=== PATIENT | male | born 1945 | race Caucasian/White ===

== ENCOUNTER 2018-01-18 21:20 | Emergency (ER) | payer MEDICARE, OTHER ==
[~2018-01-18] VITALS: Ht 170.2 cm; Wt 65.8 kg
[~2018-01-18 21:20] MED LIST: METHADONE HCL10 MG PO
[2018-01-18 21:25] VITALS: BP 142/88
--- NOTE | 2018-01-18 21:49 | Emergency Room Report ---
History of Present Illness General Chief Complaint: Overdose Source: Patient, Medical Record Present Illness HPI This is a 72-year-old male who is homeless. He is also wheelchair-bound. Friends called 911 because he slipped out of his wheelchair. He had been complaining of unable to sleep for 12 days. He bought 2 pills from his friends and as he was waiting at the [employer] truck he became very sleepy and somnolent. He slid off his wheelchair. Really no trauma. Patient was very sleepy here but denies any suicidal thoughts or intentional overdose. Denies any other complaint. Denies any drug use or alcohol use. Allergies: Coded Allergies: No Known Allergies (Unverified , 03/09/14) Patient History Past Medical History: see triage record, old chart reviewed Past Surgical History: other Pertinent Family History: none Social History: Reports: smoking Immunizations: other Reviewed Nursing Documentation: PMH: Agreed; PSxH: Agreed Review of Systems Eye: Denies: eye pain, blurred vision ENT: Denies: ear pain, nose congestion, throat swelling Respiratory: Denies: cough, shortness of breath Cardiovascular: Denies: chest pain, palpitations Gastrointestinal: Denies: abdominal pain, diarrhea, nausea, vomiting Musculoskeletal: Denies: back pain, joint pain Skin: Denies: rash Neurological: Denies: headache, numbness Endocrine: Denies: increased thirst, increased urine Hematologic/Lymphatic: Denies: easy bruising All Other Systems: negative except mentioned in HPI Physical Exam Vital Signs Date Time Temp Pulse Resp B/P (MAP) Pulse Ox O2 Delivery O2 Flow Rate FiO2 01/18/18 21:21 97.7 78 18 142/88 98 Room Air 97.7 vitals normal Sp02 EP Interpretation: reviewed, normal General Appearance: well appearing, no apparent distress, other - sleepy but awakable Head: normocephalic, atraumatic Eyes: bilateral eye PERRL, bilateral eye EOMI, bilateral eye other - pupil 2 mm ENT: hearing grossly normal, normal pharynx Neck: full range of motion, supple, no meningismus Respiratory: chest non-tender, lungs clear, normal breath sounds Cardiovascular #1: regular rate, rhythm, no murmur Gastrointestinal: normal bowel sounds, non tender, no mass, no organomegaly, no bruit, non-distended Musculoskeletal: back normal, normal range of motion Neurologic: grossly normal Skin: warm/dry Medical Decision Making Diagnostic Impression: Primary Impression: Drug overdose Qualified Codes: T50.901A - Poisoning by unspecified drugs, medicaments and biological substances, accidental (unintentional), initial encounter ER Course Patient presents with overdose on symptom for sleeping medication. He's been sleeping here without any problem. No trauma. CT head negative. We'll observe until he is clinically sober. Patient slept for several hours and got up he stated that he needed to urinate. Afterward he said he was to go. CT/MRI/US Diagnostic Results CT/MRI/US Diagnostic Results : Imaging Test Ordered: CT head Impression negative per radiologist Last Vital Signs Date Time Temp Pulse Resp B/P (MAP) Pulse Ox O2 Delivery O2 Flow Rate FiO2 01/18/18 21:21 97.7 78 18 142/88 98 Room Air 97.7 Status: improved Disposition: HOME, SELF-CARE Condition: Stable Additional Instructions: Follow-up with your Dr. in 7 days. Return if worse. KRISTI GRAY M.D. Jan 18, 2018 21:49
[2018-01-18] MEDS ORDERED: Naloxone 1mg/ml 2ml IM ONE (22:00)
[2018-01-18 23:36] VITALS: BP 189/93
[2018-01-19 00:55] VITALS: BP 189/93
--- NOTE | 2018-01-19 09:00 | Diagnostic Imaging Report ---
Indication: Headache. Head trauma Technique: Contiguous 5 mm thick transaxial imaging of the head obtained in a Siemens Sensation [address] scanner. Soft tissue and bone windows generated. Automatic Exposure Control was utilized. Total Dose length Product (DLP): 1474.[address] Dose Index Volume (CTDIvol): 70.38 mGy Comparison: none Findings: There is mild prominence of the ventricles, basal cisterns, and cerebral sulci consistent with atrophy. Mild, nonspecific, white matter hypoattenuation is noted throughout the brain consistent with chronic small vessel disease. There is no midline shift, edema, acute hemorrhage, mass effect, or abnormal extra-axial fluid collections. Bones and extra osseous soft tissues are unremarkable. Mucosal thickening noted within the paranasal sinuses. Impression: No acute intracranial bleed, mass effect or edema. Mild atrophy of the brain. Nonspecific white matter hypoattenuation probably due to chronic small vessel disease. Sinusitis. Degraded study due to motion. [facility] has communicated the preliminary results to the Emergency Department. Their findings are largely concordant with this report. The CT scanner at [facility] is accredited by the [employer] and the scans are performed using dose optimization techniques as appropriate to a performed exam including Automatic Exposure control.
== END 2018-01-19 00:55 | disposition home or self-care (01) ==
LOC: EDBD 21:20 → EMR 21:56
DX: T50.901A Poisoning by unspecified drugs, medicaments and biological substances, accidental (unintentional), initial encounter (principal); Y92.9 Unspecified place or not applicable; G31.9 Degenerative disease of nervous system, unspecified; J32.9 Chronic sinusitis, unspecified
CPT/HCPCS: 70450; 96372; 99284; J2310

== ENCOUNTER 2019-02-06 02:14 | Emergency (ER) | payer MEDICARE, OTHER ==
[~2019-02-06] VITALS: Ht 167.6 cm; Wt 68.0 kg
--- NOTE | 2019-02-06 02:14 | NUR ---
ED Nurse Note: ROSALIO BUENO FROM [place] C/O BILATERAL EYE PAIN. PT STATES HE CAN'T SEE OR OPEN EYE; UNKNOWN ETIOLOGY. AO3. NAD.
--- NOTE | 2019-02-06 02:30 | NUR ---
ED Nurse Note: IRRIGATED BILATERAL EYE
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
[2019-02-06 02:43] VITALS: BP 193/83
[2019-02-06] MEDS ORDERED: NORVASC10 MG ORAL (03:53)
[2019-02-06 03:58] VITALS: BP 160/73
[2019-02-06 04:30] VITALS: BP 160/73
--- NOTE | 2019-02-06 04:30 | NUR ---
Homeless Discharge: Patient is being discharged from medical care. Awake, alert and oriented x4. After care instructions, including referral to community resources were given. Patient verbalized understanding of After care instructions; at this time patient does not request medications, equipment or placement. Patient signed patient consent in the medical record for patient destination upon discharge. id band removed. Declined to state destination after discharge. offered transportation after discharge; patient refused. provided pt with weather appropriate clothing, food and water. Patient ambulated out with all personal belongings with steady gait.
--- NOTE | 2019-02-06 04:53 | NUR ---
Note undone in ED - 02/06/19 at 0455 by LCRISOSTOM Homeless Discharge: Patient is being discharged from medical care. Awake, alert and oriented x4. After care instructions, including referral to community resources were given. Patient verbalized understanding of After care instructions; at this time patient does not request medications, equipment or placement. Patient signed patient consent in the medical record for patient destination upon discharge. id band removed. Declined to state destination after discharge. offered transportation after discharge; patient refused. provided pt with weather appropriate clothing, food and water. Patient ambulated out with all personal belongings with steady gait.
== END 2019-02-06 04:30 | disposition home or self-care (01) ==
LOC: EDBD 02:14 → EMR 02:46
DX: H10.213 Acute toxic conjunctivitis, bilateral (principal); I10 Essential (primary) hypertension; Z59.0 Homelessness
CPT/HCPCS: 80307; 99283

== ENCOUNTER 2019-05-18 10:22 | Emergency (ER) | payer SELFPAY ==
[~2019-05-18] VITALS: Ht 175.3 cm; Wt 63.5 kg
[~2019-05-18 10:22] MED LIST changes: +NORVASC10 MG ORAL
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
[2019-05-18 10:33] VITALS: BP 146/68
--- NOTE | 2019-05-18 10:40 | NUR ---
ED Nurse Note: DR EATON AT BEDSIDE FOR EVALUATION. PT REFUSES EXAM AND STATES, "I DON'T NEED HELP." PT OFFERED FOOD BUT DECLINED. PT ASKED IF HE WANTS FOOD TO TAKE WITH HIM. SANDWICH AND JUICE PROVIDED FOR PT IN BELONGINGS BAG. PT PROVIDED WITH WALKER TO ASSIST WITH AMBULATION. PT DRESSED IN WEATHER APPROPRIATE CLOTHING. PT DECLINED ANY ASSISTANCE WITH RESOURCES REGARDING SHETLERS OR HEALTH CLINICS.
[2019-05-18 10:45] VITALS: BP 142/76
--- NOTE | 2019-05-18 10:45 | NUR ---
ED Nurse Note: PT LAYING PEACEFULLY IN BED IN NAD. AOX4. DISCHARGE PAPERWORK EXPLAINED TO PT. PT VERBALIZES UNDERSTANDING AND ALL QUESTIONS ANSWERED. DISCHARGE PAPERWORK GIVEN TO PT AND ID WRISTBAND REMOVED. PT WALKED OUT OF ER WITH STEADY GAIT AND ALL BELONGINGS.
--- NOTE | 2019-05-18 10:54 | Emergency Room Report ---
History of Present Illness General Chief Complaint: Altered Level of Consciousness Source: Patient, Medical Record, EMS Present Illness HPI Disclaimer: Please note that this report is being documented using DRAGON technology. This can lead to erroneous entry secondary to incorrect interpretation by the dictating instrument. HPI: This is a 74-year-old male with unknown medical history presenting by EMS for evaluation of behavioral changes. According to EMS, the patient was evaluated by a family welfare social work professor during a wellness check performed for homeless population on the street outside a store front today. EMS said the person who called them stated that he was behaving rationally and aggressively. They stated that he has been compliant and resting comfortably during their encounters with him. He has not required restraints. He states he does not know why he was brought here and that he has no complaints at this time. He does not recall any altercation with anyone and is requesting to leave. He states he has no formal diagnosis of psychiatric illness and that he takes no medication. He does not follow with a doctor regularly. He denies any drug or alcohol abuse currently but states he had problems with alcohol abuse in the past. States he has a known heart murmur but otherwise does not have any significant medical history, takes no medications and is otherwise in his usual state of health. He denies any recent falls or traumas, fevers, chest pain, shortness of breath, cough, vomiting, diarrhea or skin rash. He states he usually ambulate with the use of a walker or cane for stability but has lost his walker and would like a new one if possible. He denies SI/HI or any mental health issues at this time PMH: Denies PSH: Denies Allergies: Denies Social Hx: Former alcohol abuse, denies current use Allergies: Coded Allergies: No Known Allergies (Unverified , 05/18/19) Nursing Documentation-PMH Past Medical History: No Stated History Review of Systems All Other Systems: negative except mentioned in HPI Physical Exam Vital Signs Date Time Temp Pulse Resp B/P (MAP) Pulse Ox O2 Delivery O2 Flow Rate FiO2 05/18/19 10:19 99.0 88 20 172/56 (94) 99 Room Air General: Awake and alert, disheveled and unkempt, pleasant HEENT: NC/AT. EOMI. PERRLA. No nystagmus. Edentulous. Moist mucous membranes Neck: Supple, trachea midline Chest Wall: No tenderness, no deformity Cardiovascular: RRR. Systolic ejection murmur best heard at the left sternal border Resp: Normal work of breathing. No cough, wheezing or crackles appreciated Abdomen: Abdomen is soft, nondistended. Nontender Skin: Well-healed scars over the abdomen appears nonsurgical. No appreciated rash or skin breakdown on exposed skin MSK: Normal tone and bulk. Moving all extremities. No obvious deformity. Neuro: Awake and alert. Oriented x3. Mentating appropriately. Moving all extremities. Strength in the upper and lower extremities is 5/5. Attention and concentration. Appropriate insight. Medical Decision Making Diagnostic Impression: Primary Impression: History of behavioral and mental health problems ER Course Is a 74-year-old male brought in by EMS for evaluation of behavioral changes. He is awake, alert and oriented x3. He is calm and cooperative with exam and denies any acute complaints at this time. The patient did allow me to perform a physical exam but declined any further work-up including lab work or imaging stating that he does not believe it is necessary. EMS states he was cooperative and does not require restraints on route. At this time, I do not believe the patient is a danger to himself or others and is able of making his own medical decisions. He is able to refuse medical evaluation as any other patient would be allowed to do. He has appropriate insight and understands the dangers of leaving the emergency department without a full medical evaluation. Physical exam is reassuring and without any concerning findings. We will provide him a meal and a new walker to take with him. I instructed him to return to the emergency department should he have any change in his health, physical or mental. I also included in his discharge paperwork several mental health clinics in the area should he require their help. He understood and agreed with this treatment plan was discharged home Last Vital Signs Date Time Temp Pulse Resp B/P (MAP) Pulse Ox O2 Delivery O2 Flow Rate FiO2 05/18/19 10:33 84 18 Room Air 05/18/19 10:33 98.6 146/68 100 Disposition: HOME, SELF-CARE Condition: Stable Referrals: [facility] + [facility] Psych ER - Peds ER - [facility] Intake Hotline - [facility] - [facility] Additional Instructions: Please follow-up with counseling services provided in your discharge paperwork and return to the emergency department anytime with any suicidal or homicidal thoughts, hearing of voices, worsening depression, changes in your mental status in any way or any other changes in your health. Malik Garrett MD May 18, 2019 10:54
== END 2019-05-18 10:45 | disposition home or self-care (01) ==
LOC: EDBD 10:22 → EDUNIT# 10:44 → EMR 10:44
DX: F91.9 Conduct disorder, unspecified (principal); Z86.59 Personal history of other mental and behavioral disorders; Z59.0 Homelessness
CPT/HCPCS: 99282